=== PATIENT | male | born 1975 | race Two or more races ===

== ENCOUNTER 2020-06-22 18:24 | Observation (INO) | payer OTHER ==
[~2020-06-22] VITALS: Ht 170.2 cm; Wt 125.1 kg
[2020-06-22] MEDS ORDERED: IV NORMAL SALINE 1000ML BAG 1,000 ML IV ONE (18:30)
[2020-06-22 18:57] LABS: BASO % 1 % (0-3); EOS # 0.2 x10^3/uL (0.0-0.7); EOS % 2 % (0-3); HEMATOCRIT 37.3 % (39.0-53.0); LYMPH # 1.5 x10^3/uL (1.0-4.8); LYMPH % 19 % (24-48); MEAN CORPUSCULAR HEMOGLOBIN 29 pg (25-35); MEAN CORPUSCULAR HGB CONC 35 g/dL (31-37); MEAN CORPUSCULAR VOLUME 84 fL (79-100); MONO # 0.7 x10^3/uL (0.0-1.1); MONO % 9 % (0-9); NEUT # 5.6 x10^3/uL (1.8-7.7); NEUT % 70 % (31-73); PLATELET COUNT 249 x10^3/uL (140-400); RED BLOOD COUNT 4.43 x10^6/uL (4.30-5.70); RED CELL DISTRIBUTION WIDTH 13.7 % (11.5-14.5)
[2020-06-22] MEDS ORDERED: ASPIRIN 325 MG TABLET PO ONE (19:00)
[2020-06-22] MEDS ORDERED: DEXAMETHASONE SOD PHOS 20 MG/5 ML VIAL. IVP ONE (19:00)
--- NOTE | 2020-06-22 19:04 | PHYS DOC ---
Past Medical History Past Medical History: CAD, CHF, High Cholesterol, Hypertension, IA Additional Past Surgical Histo: "Cardiac cath" Smoking Status: Never Smoker Alcohol Use: Sober Drug Use: None General Adult EDM: Chief Complaint: CHEST PAIN HPI: HPI: Patient is a 44 year old with significant cardiac history presents from [facility] via EMS with report of chest pain and associated sweatiness. Reports chest pain began while "reading a book "at 1630. Patient reports pain is sharp and located to left chest with radiation to left neck. Patient reports history of prior IA and reports symptoms feel very similar to his prior episode. Patient denies any nausea, dizziness, or fever or chills. Reports has felt "a little" short of breath for last few days. Patient is COVID-19 positive on test that was performed yesterday at facility. Denies fever or chills. Denies shortness of air. Denies trauma. EMS reports giving 324 mg of aspirin, 3 rounds of nitroglycerin and 50 mcg of fentanyl IV in route prior to arrival to emergency department. Review of Systems: Review of Systems: Constitutional: Denies fever or chills Eyes: Denies redness or eye pain HENT: Denies nasal congestion or sore throat Respiratory: Denies cough or shortness of breath Cardiovascular: Reports chest pain; denies palpitations GI: Denies abdominal pain, nausea, or vomiting : Denies dysuria or hematuria Musculoskeletal: Denies back pain or joint pain Integument: Denies rash or skin lesions; reports diaphoresis Neurologic: Reports headache; denies focal weakness or sensory changes Complete systems were reviewed and found to be within normal limits, except as documented in this note. Heart Score: HEART Score for Chest Pain: HEART Score for Chest Pain Response (Comments) Value History Moderately Suspicious 1 ECG Normal 0 Age < 45 0 Risk Factors >3 Risk Factors or Hx CAD 2 Troponin < Normal Limit 0 Total 3 Risk Factors: Risk Factors: DM, Current or recent (<one month) smoker, HTN, HLP, family history of CAD, obesity. Risk Scores: Score 0 - 3: 2.5% MACE over next 6 weeks - Discharge Home Score 4 - 6: 20.3% MACE over next 6 weeks - Admit for Clinical Observation Score 7 - 10: 72.7% MACE over next 6 weeks - Early Invasive Strategies Current Medications: Current Medications Medications (Trade) Dose Ordered Sig/Elio Start Time Stop Time Status Last Admin Dose Admin Aspirin (Odin Aspirin) 325 mg 1X ONCE 06/22/20 19:00 06/22/20 19:01 Dexamethasone Sodium Phosphate (Decadron) 10 mg 1X ONCE 06/22/20 19:00 06/22/20 19:01 Sodium Chloride 1,000 ml @ 1,000 mls/hr 1X ONCE 06/22/20 18:30 06/22/20 19:29 Allergies: Allergies: Allergies Coded Allergies Type Severity Reaction Last Updated Verified Penicillins Allergy Unknown 06/22/20 Yes Physical Exam: PE: Constitutional: Well developed, well nourished, no acute distress, non-toxic appearance HENT: Normocephalic, atraumatic Eyes: Conjunctiva normal, no discharge Neck: Normal range of motion, no tenderness, supple Lungs & Thorax: No respiratory distress, equal chest rise and fall Abdomen: Soft, no tenderness Skin: Warm, dry, no erythema, no rash Back: No tenderness, no CVA tenderness Extremities: No tenderness, ROM intact, no edema Neurologic: Alert and oriented X 3, no focal deficits noted Psychologic: Affect normal, judgment normal Current Patient Data: Labs: Laboratory Tests Test 06/22/20 18:40 White Blood Count 8.0 x10^3/uL (4.0-11.0) Red Blood Count 4.43 x10^6/uL (4.30-5.70) Hemoglobin 13.0 g/dL (13.0-17.5) Hematocrit 37.3 % (39.0-53.0) L Mean Corpuscular Volume 84 fL (79-100) Mean Corpuscular Hemoglobin 29 pg (25-35) Mean Corpuscular Hemoglobin Concent 35 g/dL (31-37) Red Cell Distribution Width 13.7 % (11.5-14.5) Platelet Count 249 x10^3/uL (140-400) Neutrophils (%) (Auto) 70 % (31-73) Lymphocytes (%) (Auto) 19 % (24-48) L Monocytes (%) (Auto) 9 % (0-9) Eosinophils (%) (Auto) 2 % (0-3) Basophils (%) (Auto) 1 % (0-3) Neutrophils # (Auto) 5.6 x10^3/uL (1.8-7.7) Lymphocytes # (Auto) 1.5 x10^3/uL (1.0-4.8) Monocytes # (Auto) 0.7 x10^3/uL (0.0-1.1) Eosinophils # (Auto) 0.2 x10^3/uL (0.0-0.7) Basophils # (Auto) 0.0 x10^3/uL (0.0-0.2) Laboratory Tests 06/22/20 18:40 EKG: EKG: @1833 NSR at 79bpm, NO ST elevation, QRS 104ms, QT/QTc 348/400ms Radiology/Procedures: Radiology/Procedures: PROCEDURE: CHEST AP ONLY AP chest. HISTORY: Chest pain, Covid-19 positive AP view was taken of the chest. Heart is normal in size. There is no effusion. The patient's taken a poor inspiration. There are no definite infiltrates. IMPRESSION: 1. Poor inspiration. 2. No definite infiltrates. Electronically signed by: Matthew Rivera MD (06/22/2020 8:21 PM) [facility] Course & Med Decision Making: Course & Med Decision Making Pertinent Labs and Imaging studies reviewed. (See chart for details) Patient with significant cardiac history presents via EMS from [facility] with report of chest pain. Patient with known history of COVID-19 positive. Patient without any respiratory distress. Sats stable. EKG without acute process. Labs obtained and posted to chart. Initial troponin within normal limits. D-dimer negative. Chest x-ray stable. Patient reported some headache likely secondary to nitroglycerin. Patient requiring admission for further evaluation and treatment. Discussed with Dr. Parada (hospitalist) who is in agreement with admission. Cardiology consult placed. Will make NPO at MI. Discussed findings and plan with patient, who acknowledges understanding and agreement. COVID-19 CRITERIA: The patient was evaluated during the global COVID-19 pandemic, and that diagnosis was suspected/considered upon their initial presentation. Their evaluation, treatment and testing was consistent with current guidelines for patients who present with complaints or symptoms that may be related to COVID-19. Dragon Disclaimer: Dragon Disclaimer: This electronic medical record was generated, in whole or in part, using a voice recognition dictation system. Departure Departure Impression: Primary Impression: Chest pain Qualified Codes: R07.9 - Chest pain, unspecified Additional Impression: COVID-19 Disposition: 09 ADMITTED INPT THIS HOSP (observation) Admitting Physician: JERRY Adam) Condition: STABLE Referrals: UNKNOWN PCP NAME (PCP) COVID-19 Assessment: COVID-19 Patient Risks: Age 65 or older: No Sign of co-morbidity: Yes Exp to person + for COVID: Yes Exp to PUI: No Travel from affected area: No Lower respiratory symptoms: No Fever: No Other: Yes PPE Use: Full PPE with N95 mask or PAPR: Yes NIXON MAIER DO Jun 22, 2020 19:04
[2020-06-22 19:10] LABS: CALCIUM 9.3 mg/dL (8.5-10.1); GFR 81.9
[2020-06-22 19:11] LABS: PROTHROMBIN TIME PATIENT 13.7 SEC (11.7-14.0)
[2020-06-22 19:15] LABS: D-DIMER 0.28 ug/mlFEU (0.00-0.50)
[2020-06-22 19:16] LABS: ALBUMIN 3.7 g/dL (3.4-5.0); MAGNESIUM 2.1 mg/dL (1.8-2.4); TOTAL BILIRUBIN 0.6 mg/dL (0.2-1.0); TOTAL PROTEIN 7.5 g/dL (6.4-8.2)
[2020-06-22 19:59] LABS: BILIRUBIN,URINE NEGATIVE (NEG); CLARITY,URINE CLEAR; COLOR,URINE YELLOW; NITRITE,URINE NEGATIVE (NEG); PH,URINE 6.5 (<5.0-8.0); PROTEIN,URINE NEGATIVE (NEG-TRACE)
[2020-06-22 20:11] LABS: BACTERIA,URINE 0 /HPF (0-FEW); RBC,URINE 0 /HPF (0-2); WBC,URINE 0 /HPF (0-4)
[2020-06-22] MEDS ORDERED: ONDANSETRON PF 4 MG/2 ML VIAL. IV PRN ×2 (20:15→23:00)
[2020-06-22] MEDS ORDERED: fentaNYL PF VIAL 100 MCG/2 ML VIAL IV PRN (20:15)
--- NOTE | 2020-06-22 20:24 | RAD ---
AP chest. HISTORY: Chest pain, Covid-19 positive AP view was taken of the chest. Heart is normal in size. There is no effusion. The patient's taken a poor inspiration. There are no definite infiltrates. IMPRESSION: 1. Poor inspiration. 2. No definite infiltrates. Electronically signed by: Matthew Rivera MD (06/22/2020 8:21 PM) [facility]
[2020-06-22] MEDS ORDERED: ACETAMINOPHEN 500 MG TABLET PO ONE (20:45)
[2020-06-22 22:46] VITALS: BP 131/87
[2020-06-22] MEDS ORDERED: DOCUSATE SODIUM 100 MG CAPSULE. PO PRN (23:00)
[2020-06-22] MEDS ORDERED: guaiFENesin DM 200MG/20MG 10 ML SYRUP PO PRN (23:00)
[2020-06-22] MEDS ORDERED: ENOXAPARIN 40 MG/0.4 ML SYRINGE. SQ SCH (23:00)
[2020-06-22] MEDS ORDERED: ACETAMINOPHEN 325 MG TABLET. PO PRN (23:00)
[2020-06-22] MEDS ORDERED: NITROGLYCERIN SUBLINGUAL 0.4 MG BOTTLE OF 25. SL PRN (23:00)
[2020-06-22] MEDS ORDERED: cloNIDine HCL 0.1 MG TABLET PO PRN (23:00)
[2020-06-22] MEDS ORDERED: OMEP40CA45 PO (23:10)
[2020-06-22] MEDS ORDERED: NAPR-683 PO (23:10)
[2020-06-22] MEDS ORDERED: LISI-130 PO (23:10)
[2020-06-22] MEDS ORDERED: AMLO-187 PO (23:10)
[2020-06-22] MEDS ORDERED: ACET500T68 PO (23:10)
[2020-06-22] MEDS ORDERED: METO50TA4 PO (23:10)
[2020-06-22] MEDS ORDERED: SPIR25TA5 PO (23:10)
[2020-06-22] MEDS ORDERED: PRAV40TA2 PO (23:10)
[2020-06-22] MEDS ORDERED: NITR0.4T22 SL (23:10)
[2020-06-23] MEDS: ZINC SULFATE 220 MG CAPSULE. PO SCH ×2 (00:16→13:59)
[2020-06-23 02:57] VITALS: BP 116/76
[2020-06-23 05:52] LABS: ALBUMIN 3.6 g/dL (3.4-5.0); ALBUMIN/GLOBULIN RATIO 0.8 (1.0-1.7); CALCIUM 9.1 mg/dL (8.5-10.1); GFR 81.9; POTASSIUM 4.5 mmol/L (3.5-5.1); TOTAL BILIRUBIN 0.6 mg/dL (0.2-1.0); TOTAL PROTEIN 7.9 g/dL (6.4-8.2)
[2020-06-23 07:00] VITALS: BP 103/82
--- NOTE | 2020-06-23 07:55 | PDOC1 ---
History and Physical Date of Admission Date of Admission DATE: 06/22/20 TIME: 2004 Identification/Chief Complaint Chief Complaint Chest pain Source Source: Chart review, Patient History of Present Illness History of Present Illness Mr Pool is a 44yo M [facility] w/ PMHx CHF, High Cholesterol, Hypertension who presents via EMS with report of chest pain and associated diaphoresis. Chest pain began at rest while reading a book at 1630 on 06/22/2020. Patient reports pain is sharp and located to left chest with radiation to left neck. Patient reports history of prior NH and reports symptoms feel very similar to his prior episode. Patient denies any nausea, dizziness, or fever or chills. Reports has felt "a little" short of breath for last few days. Patient is COVID-19 positive on test performed 06/21/2020 at skilled nursing. Denies fever or chills. Denies shortness of air. Denies trauma. 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 EKG appears NSR at 79bpm, NO ST elevation, QRS 104ms, QT/QTc 348/400ms D-dimer negative. Chest radiograph difficult read due to poor inspiration. Troponin x3 -. WBC 8, Hb 13, platelets 249 On further history today he notes that he has had coronary angiography and [facility] previously in 2006 with no interventions. He was seen in January 2020 at [facility] for hospitalization after syncope and tells me he was diagnosed with congestive heart failure at that time. He does note a strong family history of coronary artery disease with a brother who had CABG x4 in his 40s mother and grandmother with coronary artery disease as well. He no longer has pain in his left neck tells me he has occasional pains in his epigastric area right now. Past Medical History Cardiovascular: HTN, Hyperlipidemia Past Surgical History Past Surgical History: No pertinent history Family History Family History: Coronary Artery Disease, High Cholestrol, Hypertension Social History Smoke: No ALCOHOL: none Drugs: Marijuana Current Problem List Problem List Problems Medical Problems: (1) Chest pain Status: Acute (2) COVID-19 Status: Acute Current Medications Current Medications Current Medications Aspirin (Odin Aspirin) 325 mg 1X ONCE PO ; Start 06/22/20 at 19:00; Stop 06/22/20 at 19:01; Status DC Sodium Chloride 1,000 ml @ 1,000 mls/hr 1X ONCE IV Last administered on 06/22/20at 18:30; Start 06/22/20 at 18:30; Stop 06/22/20 at 19:29; Status DC Dexamethasone Sodium Phosphate (Decadron) 10 mg 1X ONCE IVP Last administered on 06/22/20at 19:00; Start 06/22/20 at 19:00; Stop 06/22/20 at 19:01; Status DC Acetaminophen (Tylenol) 500 mg 1X ONCE PO Last administered on 06/22/20at 20: 37; Start 06/22/20 at 20:45; Stop 06/22/20 at 20:46; Status DC Ondansetron HCl (Zofran) 4 mg PRN Q8HRS PRN IV NAUSEA/VOMITING; Start 06/22/20 at 20:15; Stop 06/22/20 at 22:56; Status DC Fentanyl Citrate (Fentanyl 2ml Vial) 50 mcg PRN Q2HR PRN IV PAIN; Start 06/22/20 at 20:15 Ondansetron HCl (Zofran) 4 mg PRN Q4HRS PRN IV NAUSEA/VOMITING; Start 06/22/20 at 23:00 Acetaminophen (Tylenol) 650 mg PRN Q4HRS PRN PO TEMP OVER 100.4F OR MILD PAIN; Start 06/22/20 at 23:00 Clonidine HCl (Catapres) 0.1 mg PRN Q6HRS PRN PO SBP>160 OR DBP>90; Start 06/22/20 at 23:00 Docusate Sodium (Colace) 100 mg PRN BID PRN PO HARD STOOLS; Start 06/22/20 at 23:00 Enoxaparin Sodium (Lovenox 40mg Syringe) 40 mg Q24H SQ Last administered on 06/23/20at 00:17; Start 06/22/20 at 23:00 Nitroglycerin (Nitrostat) 0.4 mg PRN Q5MIN PRN SL CHEST PAIN; Start 06/22/20 at 23:00 Guaifenesin (Robitussin Dm) 10 ml PRN Q6HRS PRN PO COUGH; Start 06/22/20 at 23:00 Zinc Sulfate (Orazinc) 220 mg DAILY PO Last administered on 06/23/20at 00:16; Start 06/22/20 at 23:00 Active Scripts Active Reported Acetaminophen 500 Mg Tablet 500 Mg PO BID NITROGLYCERIN SubLingual (Nitroglycerin) 0.4 Mg Tab.subl 1 Tab SL UD 1st sign of attack; may repeat every 5 mins; if pain persists after 3 in 15 min, medical attention is recommended Naprosyn (Naproxen) 500 Mg Tablet 1 Tab PO BID 30 Days Omeprazole 40 Mg Capsule.dr 1 Cap PO DAILY PRN Pravastatin Sodium 40 Mg Tablet 1 Tab PO QHS Spironolactone 25 Mg Tablet 1 Tab PO BID Toprol XL (Metoprolol Succinate) 50 Mg Tab.er.24h 50 Mg PO DAILY Amlodipine Besylate 10 Mg Tablet 10 Mg PO DAILY Lisinopril 40 Mg Tablet 1 Tab PO DAILY Allergies Allergies: Coded Allergies: Penicillins (Verified Allergy, Unknown, 06/22/20) ROS General: YES: Fatigue, Malaise; No: Chills, Night Sweats, Appetite, Other PSYCHOLOGICAL ROS: No: Anxiety, Behavioral Disorder, Concentration difficultie, Decreased libido, Depression, Disorientation, Hallucinations, Hostility, Irritablity, Memory difficulties, Mood Swings, Obsessive thoughts, Physical abuse, Sexual abuse, Sleep disturbances, Suicidal ideation, Other Eyes: No Blurry vision, No Decreased vision, No Double vision, No Dry eyes, No Excessive tearing, No Eye Pain, No Itchy Eyes, No Loss of vision, No Photophobia, No Scotomata, No Uses contacts, No Uses glasses, No Other HEENT: No: Heacaches, Visual Changes, Hearing change, Nasal congestion, Nasal discharge, Oral lesions, Sinus pain, Sore Throat, Epistaxis, Sneezing, Snoring, Tinnitus, Vertigo, Vocal changes, Other ALLERGY AND IMMUNOLOGY: No: Hives, Insect Bite Sensitivity, Itchy/Watery Eyes, Nasal Congestion, Post Nasal Drip, Seasonal Allergies, Other Hematological and Lymphatic: No: Bleeding Problems, Blood Clots, Blood Transfusions, Brusing, Night Sweats, Pallor, Swollen Lymph Nodes, Other ENDOCRINE: No: Breast Changes, Galactorrhea, Hair Pattern Changes, Hot Flashes, Malaise/lethargy, Mood Swings, Palpitations, Polydipsia/polyuria, Skin Changes, Temperature Intolerance, Unexpected Weight Changes, Other Breast: No New/Changing Breast Lumps, No Nipple changes, No Nipple discharge, No Other Respiratory: No: Cough, Hemoptysis, Orthopnea, Pleuritic Pain, Shortness of breath, SOB with excertion, Sputum Changes, Stridor, Tachypnea, Wheezing, Other Cardiovascular: yes Chest Pain; No Palpitations, No Orthopnea, No Paroxysmal Noc. Dyspnea, No Edema, No Lt Headedness, No Other Gastrointestinal: No Nausea, No Vomiting, No Abdominal Pain, No Diarrhea, No Constipation, No Melena, No Hematochezia, No Other Genitourinary: No Dysuria, No Frequency, No Incontinence, No Hematuria, No Retention, No Discharge, No Urgency, No Pain, No Flank Pain, No Other, No , No , No , No , No , No , No Musculoskeletal: No Gait Disturbance, No Joint Pain, No Joint Stiffness, No Joint Swelling, No Muscle Pain, No Muscular Weakness, No Pain In:, No Swelling In:, No Other Neurological: No Behavorial Changes, No Bowel/Bladder ControlChng, No Confusion, No Dizziness, No Gait Disturbance, No Headaches, No Impaired Coord/balance, No Memory Loss, No Numbness/Tingling, No Seizures, No Speech Problems, No Tremors, No Visual Changes, No Weakness, No Other Skin: No Dry Skin, No Eczema, No Hair Changes, No Lumps, No Mole Changes, No Mottling, No Nail Changes, No Pruritus, No Rash, No Skin Lesion Changes, No Other, No Acne Physical Exam General: Alert, Oriented X3, Cooperative, No acute distress HEENT: Atraumatic, PERRLA, EOMI, Mucous membr. moist/pink Lungs: Clear to auscultation, Normal air movement Heart: S1S2, RRR, no thrills, no rubs, no gallops, no murmurs Abdomen: Normal bowel sounds, Soft, No tenderness, No hepatosplenomegaly, No masses Rectal Exam: not examined Extremities: No clubbing, No cyanosis, No edema, Normal pulses, No tenderness/swelling Skin: No rashes, No breakdown, No significant lesion Neuro: Normal gait, Normal speech, Strength at 5/5 X4 ext, Normal tone, Sensation intact, Cranial nerves 3-12 NL, Reflexes 2+ Psych/Mental Status: Mental status NL, Mood NL Vitals Vitals Vital Signs Date Time Temp Pulse Resp B/P (MAP) Pulse Ox O2 Delivery O2 Flow Rate FiO2 06/23/20 02:57 97.6 84 18 116/76 (89) 96 Room Air 97.6 Labs Labs Laboratory Tests Test 06/22/20 18:40 06/22/20 19:45 06/23/20 01:00 06/23/20 04:45 White Blood Count 8.0 x10^3/uL (4.0-11.0) Red Blood Count 4.43 x10^6/uL (4.30-5.70) Hemoglobin 13.0 g/dL (13.0-17.5) Hematocrit 37.3 % (39.0-53.0) Mean Corpuscular Volume 84 fL (79-100) Mean Corpuscular Hemoglobin 29 pg (25-35) Mean Corpuscular Hemoglobin Concent 35 g/dL (31-37) Red Cell Distribution Width 13.7 % (11.5-14.5) Platelet Count 249 x10^3/uL (140-400) Neutrophils (%) (Auto) 70 % (31-73) Lymphocytes (%) (Auto) 19 % (24-48) Monocytes (%) (Auto) 9 % (0-9) Eosinophils (%) (Auto) 2 % (0-3) Basophils (%) (Auto) 1 % (0-3) Neutrophils # (Auto) 5.6 x10^3/uL (1.8-7.7) Lymphocytes # (Auto) 1.5 x10^3/uL (1.0-4.8) Monocytes # (Auto) 0.7 x10^3/uL (0.0-1.1) Eosinophils # (Auto) 0.2 x10^3/uL (0.0-0.7) Basophils # (Auto) 0.0 x10^3/uL (0.0-0.2) Prothrombin Time 13.7 SEC (11.7-14.0) Prothromb Time International Ratio 1.1 (0.8-1.1) Activated Partial Thromboplast Time 29 SEC (24-38) D-Dimer (Floridalma) 0.28 ug/mlFEU (0.00-0.50) < 0.27 ug/mlFEU Sodium Level 137 mmol/L (136-145) 137 mmol/L (136-145) Potassium Level 4.0 mmol/L (3.5-5.1) 4.5 mmol/L (3.5-5.1) Chloride Level 103 mmol/L (98-107) 103 mmol/L (98-107) Carbon Dioxide Level 28 mmol/L (21-32) 25 mmol/L (21-32) Anion Gap 6 (6-14) 9 (6-14) Blood Urea Nitrogen 19 mg/dL (8-26) 18 mg/dL (8-26) Creatinine 1.0 mg/dL (0.7-1.3) 1.0 mg/dL (0.7-1.3) Estimated GFR (Cockcroft-Gault) 81.9 81.9 BUN/Creatinine Ratio 19 (6-20) 18 (6-20) Glucose Level 105 mg/dL (70-99) 152 mg/dL (70-99) Calcium Level 9.3 mg/dL (8.5-10.1) 9.1 mg/dL (8.5-10.1) Magnesium Level 2.1 mg/dL (1.8-2.4) Total Bilirubin 0.6 mg/dL (0.2-1.0) 0.6 mg/dL (0.2-1.0) Aspartate Amino Transf (AST/SGOT) 15 U/L (15-37) 14 U/L (15-37) Alanine Aminotransferase (ALT/SGPT) 23 U/L (16-63) 24 U/L (16-63) Alkaline Phosphatase 73 U/L (46-116) 76 U/L (46-116) Troponin I Quantitative < 0.017 ng/mL (0.000-0.055) < 0.017 ng/mL (0.000-0.055) < 0.017 ng/mL (0.000-0.055) IW-Qjz-W-Type Natriuretic Peptide 71 pg/mL (0-124) Total Protein 7.5 g/dL (6.4-8.2) 7.9 g/dL (6.4-8.2) Albumin 3.7 g/dL (3.4-5.0) 3.6 g/dL (3.4-5.0) Albumin/Globulin Ratio 1.0 (1.0-1.7) 0.8 (1.0-1.7) Lipase 75 U/L (73-393) Urine Collection Type Unknown Urine Color Yellow Urine Clarity Clear Urine pH 6.5 (<5.0-8.0) Urine Specific Bon[place]arte 1.010 (1.000-1.030) Urine Protein Negative mg/dL (NEG-TRACE) Urine Glucose (UA) Negative mg/dL (NEG) Urine Ketones (Stick) Negative mg/dL (NEG) Urine Blood Negative (NEG) Urine Nitrite Negative (NEG) Urine Bilirubin Negative (NEG) Urine Urobilinogen Dipstick 1.0 mg/dL (0.2 mg/dL) Urine Leukocyte Esterase Negative (NEG) Urine RBC 0 /HPF (0-2) Urine WBC 0 /HPF (0-4) Urine Squamous Epithelial Cells Occ /LPF Urine Bacteria 0 /HPF (0-FEW) Urine Mucus Slight /LPF Laboratory Tests Test 06/22/20 18:40 06/22/20 19:45 06/23/20 01:00 06/23/20 04:45 White Blood Count 8.0 x10^3/uL (4.0-11.0) Red Blood Count 4.43 x10^6/uL (4.30-5.70) Hemoglobin 13.0 g/dL (13.0-17.5) Hematocrit 37.3 % (39.0-53.0) Mean Corpuscular Volume 84 fL (79-100) Mean Corpuscular Hemoglobin 29 pg (25-35) Mean Corpuscular Hemoglobin Concent 35 g/dL (31-37) Red Cell Distribution Width 13.7 % (11.5-14.5) Platelet Count 249 x10^3/uL (140-400) Neutrophils (%) (Auto) 70 % (31-73) Lymphocytes (%) (Auto) 19 % (24-48) Monocytes (%) (Auto) 9 % (0-9) Eosinophils (%) (Auto) 2 % (0-3) Basophils (%) (Auto) 1 % (0-3) Neutrophils # (Auto) 5.6 x10^3/uL (1.8-7.7) Lymphocytes # (Auto) 1.5 x10^3/uL (1.0-4.8) Monocytes # (Auto) 0.7 x10^3/uL (0.0-1.1) Eosinophils # (Auto) 0.2 x10^3/uL (0.0-0.7) Basophils # (Auto) 0.0 x10^3/uL (0.0-0.2) Prothrombin Time 13.7 SEC (11.7-14.0) Prothromb Time International Ratio 1.1 (0.8-1.1) Activated Partial Thromboplast Time 29 SEC (24-38) D-Dimer (Floridalma) 0.28 ug/mlFEU (0.00-0.50) < 0.27 ug/mlFEU Sodium Level 137 mmol/L (136-145) 137 mmol/L (136-145) Potassium Level 4.0 mmol/L (3.5-5.1) 4.5 mmol/L (3.5-5.1) Chloride Level 103 mmol/L (98-107) 103 mmol/L (98-107) Carbon Dioxide Level 28 mmol/L (21-32) 25 mmol/L (21-32) Anion Gap 6 (6-14) 9 (6-14) Blood Urea Nitrogen 19 mg/dL (8-26) 18 mg/dL (8-26) Creatinine 1.0 mg/dL (0.7-1.3) 1.0 mg/dL (0.7-1.3) Estimated GFR (Cockcroft-Gault) 81.9 81.9 BUN/Creatinine Ratio 19 (6-20) 18 (6-20) Glucose Level 105 mg/dL (70-99) 152 mg/dL (70-99) Calcium Level 9.3 mg/dL (8.5-10.1) 9.1 mg/dL (8.5-10.1) Magnesium Level 2.1 mg/dL (1.8-2.4) Total Bilirubin 0.6 mg/dL (0.2-1.0) 0.6 mg/dL (0.2-1.0) Aspartate Amino Transf (AST/SGOT) 15 U/L (15-37) 14 U/L (15-37) Alanine Aminotransferase (ALT/SGPT) 23 U/L (16-63) 24 U/L (16-63) Alkaline Phosphatase 73 U/L (46-116) 76 U/L (46-116) Troponin I Quantitative < 0.017 ng/mL (0.000-0.055) < 0.017 ng/mL (0.000-0.055) < 0.017 ng/mL (0.000-0.055) KC-Sdg-I-Type Natriuretic Peptide 71 pg/mL (0-124) Total Protein 7.5 g/dL (6.4-8.2) 7.9 g/dL (6.4-8.2) Albumin 3.7 g/dL (3.4-5.0) 3.6 g/dL (3.4-5.0) Albumin/Globulin Ratio 1.0 (1.0-1.7) 0.8 (1.0-1.7) Lipase 75 U/L (73-393) Urine Collection Type Unknown Urine Color Yellow Urine Clarity Clear Urine pH 6.5 (<5.0-8.0) Urine Specific [place]arte 1.010 (1.000-1.030) Urine Protein Negative mg/dL (NEG-TRACE) Urine Glucose (UA) Negative mg/dL (NEG) Urine Ketones (Stick) Negative mg/dL (NEG) Urine Blood Negative (NEG) Urine Nitrite Negative (NEG) Urine Bilirubin Negative (NEG) Urine Urobilinogen Dipstick 1.0 mg/dL (0.2 mg/dL) Urine Leukocyte Esterase Negative (NEG) Urine RBC 0 /HPF (0-2) Urine WBC 0 /HPF (0-4) Urine Squamous Epithelial Cells Occ /LPF Urine Bacteria 0 /HPF (0-FEW) Urine Mucus Slight /LPF Images Images Chest radiograph: AP view was taken of the chest. Heart is normal in size. There is no effusion. The patient's taken a poor inspiration. There are no definite infiltrates. IMPRESSION: 1. Poor inspiration. 2. No definite infiltrates. VTE Prophylaxis Ordered VTE Prophylaxis Devices: Yes VTE Pharmacological Prophylaxi: Yes Assessment/Plan Assessment/Plan A/P: COVID-19 - not requiring any oxygen no significant GI symptoms. Chest pain - likely GERD. Per his report has nonobstructive CAD on cardiac cath and has been seen at [facility] in [facility]. Diastolic CHF - BNP 71, not symptomatic High Cholesterol - cont statin Hypertension - cont BP meds FEN - Cardiac diet PPX - Lovenox FULL CODE DIspo - ruled out for acute NH, can return to facility COVID-19 CRITERIA: The patient was evaluated during the global COVID-19 woody demic, and that diagnosis was suspected/considered upon their initial presentation. Their evaluation, treatment and testing was consistent with current guidelines for patients who present with complaints or symptoms that may be related to COVID-19. Justifications for Admission Other Justification BEVERLY MARIE MD Jun 23, 2020 07:55
[2020-06-23] MEDS ORDERED: NITROGLYCERIN SUBLINGUAL 0.4 MG BOTTLE OF 25. SL PRN (08:00)
[2020-06-23] MEDS ORDERED: SPIRONOLACTONE 25 MG TABLET PO SCH (09:00)
[2020-06-23] MEDS ORDERED: PANTOPRAZOLE 40 MG TABLET.DR. PO SCH (09:00)
[2020-06-23] MEDS ORDERED: amLODIPine BESYLATE 10 MG TABLET PO SCH (09:00)
[2020-06-23] MEDS ORDERED: METOPROLOL SUCC 24HR ER 50 MG TAB.ER.24H. PO SCH (09:00)
[2020-06-23] MEDS ORDERED: LISINOPRIL 20 MG TABLET PO SCH (09:00)
[2020-06-23 11:00] VITALS: BP 101/83
[2020-06-23] MEDS ORDERED: PANT40TA77 PO (13:52)
--- NOTE | 2020-06-23 13:57 | PDOC3 ---
Discharge Summary Visit Information Date of Admission: Jun 22, 2020 Date of Discharge: Jun 23, 2020 Admitting Diagnosis: Chest pain Final Diagnosis Problems Medical Problems: (1) Chest pain Status: Acute (2) COVID-19 Status: Acute Brief Hospital Course Allergies Allergies Coded Allergies Type Severity Reaction Last Updated Verified Penicillins Allergy Unknown 06/22/20 Yes Vital Signs Vital Signs Date Time Temp Pulse Resp B/P (MAP) Pulse Ox O2 Delivery O2 Flow Rate FiO2 06/23/20 08:00 Room Air 06/23/20 07:00 97.8 88 16 103/82 (89) 95 97.8 Lab Results Laboratory Tests Test 06/22/20 18:40 06/22/20 19:45 06/23/20 01:00 06/23/20 04:45 White Blood Count 8.0 x10^3/uL (4.0-11.0) Red Blood Count 4.43 x10^6/uL (4.30-5.70) Hemoglobin 13.0 g/dL (13.0-17.5) Hematocrit 37.3 % (39.0-53.0) Mean Corpuscular Volume 84 fL (79-100) Mean Corpuscular Hemoglobin 29 pg (25-35) Mean Corpuscular Hemoglobin Concent 35 g/dL (31-37) Red Cell Distribution Width 13.7 % (11.5-14.5) Platelet Count 249 x10^3/uL (140-400) Neutrophils (%) (Auto) 70 % (31-73) Lymphocytes (%) (Auto) 19 % (24-48) Monocytes (%) (Auto) 9 % (0-9) Eosinophils (%) (Auto) 2 % (0-3) Basophils (%) (Auto) 1 % (0-3) Neutrophils # (Auto) 5.6 x10^3/uL (1.8-7.7) Lymphocytes # (Auto) 1.5 x10^3/uL (1.0-4.8) Monocytes # (Auto) 0.7 x10^3/uL (0.0-1.1) Eosinophils # (Auto) 0.2 x10^3/uL (0.0-0.7) Basophils # (Auto) 0.0 x10^3/uL (0.0-0.2) Prothrombin Time 13.7 SEC (11.7-14.0) Prothromb Time International Ratio 1.1 (0.8-1.1) Activated Partial Thromboplast Time 29 SEC (24-38) D-Dimer (Floridalma) 0.28 ug/mlFEU (0.00-0.50) < 0.27 ug/mlFEU Sodium Level 137 mmol/L (136-145) 137 mmol/L (136-145) Potassium Level 4.0 mmol/L (3.5-5.1) 4.5 mmol/L (3.5-5.1) Chloride Level 103 mmol/L (98-107) 103 mmol/L (98-107) Carbon Dioxide Level 28 mmol/L (21-32) 25 mmol/L (21-32) Anion Gap 6 (6-14) 9 (6-14) Blood Urea Nitrogen 19 mg/dL (8-26) 18 mg/dL (8-26) Creatinine 1.0 mg/dL (0.7-1.3) 1.0 mg/dL (0.7-1.3) Estimated GFR (Cockcroft-Gault) 81.9 81.9 BUN/Creatinine Ratio 19 (6-20) 18 (6-20) Glucose Level 105 mg/dL (70-99) 152 mg/dL (70-99) Calcium Level 9.3 mg/dL (8.5-10.1) 9.1 mg/dL (8.5-10.1) Magnesium Level 2.1 mg/dL (1.8-2.4) Total Bilirubin 0.6 mg/dL (0.2-1.0) 0.6 mg/dL (0.2-1.0) Aspartate Amino Transf (AST/SGOT) 15 U/L (15-37) 14 U/L (15-37) Alanine Aminotransferase (ALT/SGPT) 23 U/L (16-63) 24 U/L (16-63) Alkaline Phosphatase 73 U/L (46-116) 76 U/L (46-116) Troponin I Quantitative < 0.017 ng/mL (0.000-0.055) < 0.017 ng/mL (0.000-0.055) < 0.017 ng/mL (0.000-0.055) PS-Vrh-W-Type Natriuretic Peptide 71 pg/mL (0-124) Total Protein 7.5 g/dL (6.4-8.2) 7.9 g/dL (6.4-8.2) Albumin 3.7 g/dL (3.4-5.0) 3.6 g/dL (3.4-5.0) Albumin/Globulin Ratio 1.0 (1.0-1.7) 0.8 (1.0-1.7) Lipase 75 U/L (73-393) Urine Collection Type Unknown Urine Color Yellow Urine Clarity Clear Urine pH 6.5 (<5.0-8.0) Urine Specific [place] 1.010 (1.000-1.030) Urine Protein Negative mg/dL (NEG-TRACE) Urine Glucose (UA) Negative mg/dL (NEG) Urine Ketones (Stick) Negative mg/dL (NEG) Urine Blood Negative (NEG) Urine Nitrite Negative (NEG) Urine Bilirubin Negative (NEG) Urine Urobilinogen Dipstick 1.0 mg/dL (0.2 mg/dL) Urine Leukocyte Esterase Negative (NEG) Urine RBC 0 /HPF (0-2) Urine WBC 0 /HPF (0-4) Urine Squamous Epithelial Cells Occ /LPF Urine Bacteria 0 /HPF (0-FEW) Urine Mucus Slight /LPF Laboratory Tests Test 06/22/20 18:40 06/22/20 19:45 06/23/20 01:00 06/23/20 04:45 White Blood Count 8.0 x10^3/uL (4.0-11.0) Red Blood Count 4.43 x10^6/uL (4.30-5.70) Hemoglobin 13.0 g/dL (13.0-17.5) Hematocrit 37.3 % (39.0-53.0) Mean Corpuscular Volume 84 fL (79-100) Mean Corpuscular Hemoglobin 29 pg (25-35) Mean Corpuscular Hemoglobin Concent 35 g/dL (31-37) Red Cell Distribution Width 13.7 % (11.5-14.5) Platelet Count 249 x10^3/uL (140-400) Neutrophils (%) (Auto) 70 % (31-73) Lymphocytes (%) (Auto) 19 % (24-48) Monocytes (%) (Auto) 9 % (0-9) Eosinophils (%) (Auto) 2 % (0-3) Basophils (%) (Auto) 1 % (0-3) Neutrophils # (Auto) 5.6 x10^3/uL (1.8-7.7) Lymphocytes # (Auto) 1.5 x10^3/uL (1.0-4.8) Monocytes # (Auto) 0.7 x10^3/uL (0.0-1.1) Eosinophils # (Auto) 0.2 x10^3/uL (0.0-0.7) Basophils # (Auto) 0.0 x10^3/uL (0.0-0.2) Prothrombin Time 13.7 SEC (11.7-14.0) Prothromb Time International Ratio 1.1 (0.8-1.1) Activated Partial Thromboplast Time 29 SEC (24-38) D-Dimer (Floridalma) 0.28 ug/mlFEU (0.00-0.50) < 0.27 ug/mlFEU Sodium Level 137 mmol/L (136-145) 137 mmol/L (136-145) Potassium Level 4.0 mmol/L (3.5-5.1) 4.5 mmol/L (3.5-5.1) Chloride Level 103 mmol/L (98-107) 103 mmol/L (98-107) Carbon Dioxide Level 28 mmol/L (21-32) 25 mmol/L (21-32) Anion Gap 6 (6-14) 9 (6-14) Blood Urea Nitrogen 19 mg/dL (8-26) 18 mg/dL (8-26) Creatinine 1.0 mg/dL (0.7-1.3) 1.0 mg/dL (0.7-1.3) Estimated GFR (Cockcroft-Gault) 81.9 81.9 BUN/Creatinine Ratio 19 (6-20) 18 (6-20) Glucose Level 105 mg/dL (70-99) 152 mg/dL (70-99) Calcium Level 9.3 mg/dL (8.5-10.1) 9.1 mg/dL (8.5-10.1) Magnesium Level 2.1 mg/dL (1.8-2.4) Total Bilirubin 0.6 mg/dL (0.2-1.0) 0.6 mg/dL (0.2-1.0) Aspartate Amino Transf (AST/SGOT) 15 U/L (15-37) 14 U/L (15-37) Alanine Aminotransferase (ALT/SGPT) 23 U/L (16-63) 24 U/L (16-63) Alkaline Phosphatase 73 U/L (46-116) 76 U/L (46-116) Troponin I Quantitative < 0.017 ng/mL (0.000-0.055) < 0.017 ng/mL (0.000-0.055) < 0.017 ng/mL (0.000-0.055) GG-Rzt-R-Type Natriuretic Peptide 71 pg/mL (0-124) Total Protein 7.5 g/dL (6.4-8.2) 7.9 g/dL (6.4-8.2) Albumin 3.7 g/dL (3.4-5.0) 3.6 g/dL (3.4-5.0) Albumin/Globulin Ratio 1.0 (1.0-1.7) 0.8 (1.0-1.7) Lipase 75 U/L (73-393) Urine Collection Type Unknown Urine Color Yellow Urine Clarity Clear Urine pH 6.5 (<5.0-8.0) Urine Specific [place] 1.010 (1.000-1.030) Urine Protein Negative mg/dL (NEG-TRACE) Urine Glucose (UA) Negative mg/dL (NEG) Urine Ketones (Stick) Negative mg/dL (NEG) Urine Blood Negative (NEG) Urine Nitrite Negative (NEG) Urine Bilirubin Negative (NEG) Urine Urobilinogen Dipstick 1.0 mg/dL (0.2 mg/dL) Urine Leukocyte Esterase Negative (NEG) Urine RBC 0 /HPF (0-2) Urine WBC 0 /HPF (0-4) Urine Squamous Epithelial Cells Occ /LPF Urine Bacteria 0 /HPF (0-FEW) Urine Mucus Slight /LPF Brief Hospital Course Mr Pool is a 44yo M inmate [facility] w/ PMHx CHF, High Cholesterol, Hypertension who presents via EMS with report of chest pain and associated diaphoresis. Chest pain began at rest while reading a book at 1630 on 06/22/2020. Patient reports pain is sharp and located to left chest with radiation to left neck. Patient reports history of prior FL and reports symptoms feel very similar to his prior episode. Patient denies any nausea, dizziness, or fever or chills. Reports has felt "a little" short of breath for last few days. Patient is COVID-19 positive on test performed 06/21/2020 at retirement. Denies fever or chills. Denies shortness of air. Denies trauma. 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 EKG appears NSR at 79bpm, NO ST elevation, QRS 104ms, QT/QTc 348/400ms D-dimer negative. Chest radiograph difficult read due to poor inspiration. Troponin x3 -. WBC 8, Hb 13, platelets 249 On further history today he notes that he has had coronary angiography and [facility] previously in 2006 with no interventions. He was seen in January 2020 at [facility] for hospitalization after syncope and tells me he was diagnosed with congestive heart failure at that time. He does note a strong family history of coronary artery disease with a brother who had CABG x4 in his 40s mother and grandmother with coronary artery disease as well. He no longer has pain in his left neck tells me he has occasional pains in his epigastric area right now, improved with PPI and NTG. Problem list: COVID-19 - not requiring any oxygen no significant GI symptoms. Chest pain - likely GERD. Per his report has nonobstructive CAD on cardiac cath and has been seen at [facility] in 2019. Diastolic CHF - BNP 71, not symptomatic High Cholesterol - cont statin Hypertension - cont BP meds FEN - Cardiac diet FULL CODE DIspo - ruled out for acute FL, can return to facility with outpatient f/u with primary church organist. Due to COVID 19 restrictions an outpatient echo and stress test cannot be scheduled until 14 days from his positive test. Discharge Information Condition at Discharge: Improved Follow Up: Weeks Disposition/Orders: D/C to Another Facility Scheduled Acetaminophen (Acetaminophen) 500 Mg Tablet, 500 MG PO BID for pain, (Reported) Entered as Reported by: NATE TEJEDA on 06/22/202309 Last Taken: Unknown Dose on 06/22/20 Last Action: New Order on 06/22/202309 by NATE TEJEDA Amlodipine Besylate (Amlodipine Besylate) 10 Mg Tablet, 10 MG PO DAILY for htn, (Reported) Entered as Reported by: NATE TEJEDA on 06/22/202309 Last Taken: Unknown Dose on 06/22/20 Last Action: Continued on 06/23/20749 by BEVERLY MARIE MD Lisinopril (Lisinopril) 40 Mg Tablet, 1 TAB PO DAILY for htn, #30 Ref 5 (Reported) Entered as Reported by: NATE TEJEDA on 06/22/202309 Last Taken: Unknown Dose on 06/22/20 Last Action: Continued on 06/23/20749 by BEEVRLY MARIE MD Metoprolol Succinate (Toprol XL) 50 Mg Tab.er.24h, 50 MG PO DAILY for FOR HYPERTENSION, (Reported) Entered as Reported by: NATE TEJEDA on 06/22/202309 Last Taken: Unknown Dose on 06/22/20 Last Action: Continued on 06/23/20749 by BEVERLY MARIE MD Nitroglycerin (NITROGLYCERIN SubLingual) 0.4 Mg Tab.subl, 1 TAB SL UD for chest pain, #25 Ref 0 (Reported) 1st sign of attack; may repeat every 5 mins; if pain persists after 3 in 15 min, medical attention is recommended Entered as Reported by: NATE TEJEDA on 06/22/202309 Last Taken: Unknown Dose on 06/22/20 Last Action: Continued on 06/23/20749 by BEVERLY MARIE MD Pantoprazole Sodium (Pantoprazole Sodium ) 40 Mg Tablet.dr, 40 MG PO BID for GERD for 30 Days, #60 Prescribed by: BEVERLY MARIE MD on 06/23/20 1352 Pravastatin Sodium (Pravastatin Sodium) 40 Mg Tablet, 1 TAB PO QHS for cholesterol, #90 Ref 1 (Reported) Entered as Reported by: NATE TEJEDA on 06/22/202309 Last Taken: Unknown Dose on 06/22/20 Last Action: Converted on 06/23/20749 by BEVERLY MARIE MD Spironolactone (Spironolactone) 25 Mg Tablet, 1 TAB PO BID for diuretic, #90 Ref 1 (Reported) Entered as Reported by: NATE TEJEDA on 06/22/202309 Last Taken: Unknown Dose on 06/22/20 Last Action: Continued on 06/23/20749 by BEVERLY MARIE MD Discontinued Medications Naproxen (Naprosyn) 500 Mg Tablet, 1 TAB PO BID for pain for 30 Days, #60 Ref 0 (Reported) Entered as Reported by: NATE TEJEDA on 06/22/202309 Last Taken: Unknown Dose on 06/22/20 Last Action: New Order on 06/22/202309 by NATE TEJEDA Omeprazole (Omeprazole) 40 Mg Capsule.dr, 1 CAP PO DAILY PRN for INDIGESTION, #30 Ref 3 (Reported) Entered as Reported by: NATE TEJEDA on 06/22/202309 Last Taken: Unknown Dose on Unknown Date & Time Last Action: Converted on 06/23/20749 by BEVERLY MARIE MD Justicifation of Admission Dx: Justifications for Admission: Justification of Admission Dx: Yes BEVERLY MARIE MD Jun 23, 2020 13:57
--- NOTE | 2020-06-23 13:58 | SNU/HH DC ---
DISCHARGE ORDERS DISCHARGE INFORMATION: DISCHARGE DATE: Jun 23, 2020 FINAL DIAGNOSIS Problems Medical Problems: (1) Chest pain Status: Acute (2) COVID-19 Status: Acute CONDITION ON DISCHARGE: Stable CODE STATUS: Code Status: Full POST DISCHARGE ORDERS: ACTIVITY ORDERS: No restrictions WEIGHT BEARING STATUS: No restrictions DIET AFTER DISCHARGE: Cardiac CHECKS AFTER DISCHARGE: CHECKS AFTER DISCHARGE: Check blood press - daily, Check your Temp as needed, Weigh Yourself Daily FOLLOW-UP: PHYSICIAN FOLLOW-UP: Dr. Mendoza [facility] DISCHARGE MEDICATIONS: Home Meds Active Scripts Pantoprazole Sodium (PANTOPRAZOLE SODIUM ) 40 Mg Tablet., 40 MG PO BID for GERD for 30 Days, #60 TAB.SR Prov:BEVERLY MARIE MD 06/23/20 Reported Medications Acetaminophen (ACETAMINOPHEN) 500 Mg Tablet, 500 MG PO BID for pain, TAB 06/22/20 Nitroglycerin (NITROGLYCERIN SubLingual) 0.4 Mg Tab.subl, 1 TAB SL UD for chest pain, #25 TAB 0 Refills 1st sign of attack; may repeat every 5 mins; if pain persists after 3 in 15 min, medical attention is recommended 06/22/20 Pravastatin Sodium (PRAVASTATIN SODIUM) 40 Mg Tablet, 1 TAB PO QHS for cholesterol, #90 TAB 1 Refill 06/22/20 Spironolactone (SPIRONOLACTONE) 25 Mg Tablet, 1 TAB PO BID for diuretic, #90 TAB 1 Refill 06/22/20 Metoprolol Succinate (Toprol XL) 50 Mg Tab.er.24h, 50 MG PO DAILY for FOR HYPERTENSION, TAB.SR 06/22/20 Amlodipine Besylate (AMLODIPINE BESYLATE) 10 Mg Tablet, 10 MG PO DAILY for htn, TAB 06/22/20 Lisinopril (LISINOPRIL) 40 Mg Tablet, 1 TAB PO DAILY for htn, #30 TAB 5 Refills 06/22/20 Discontinued Reported Medications Naproxen (NAPROSYN) 500 Mg Tablet, 1 TAB PO BID for pain for 30 Days, #60 TAB 0 Refills 06/22/20 Omeprazole (OMEPRAZOLE) 40 Mg Capsule., 1 CAP PO DAILY PRN for INDIGESTION, #30 CAP 3 Refills 06/22/20 BEVERLY MARIE MD Jun 23, 2020 13:58
[2020-06-23 15:00] VITALS: BP 147/62
--- NOTE | 2020-06-23 17:00 | NUR ---
Discharge Note: REYNALDO WADE [address] [place] [address] Discharge instructions and discharge home medications reviewed with Lew at [facility] and a copy given. All questions have been answered and understanding verbalized. The following instructions and handouts were given: f/u with credit risk review officer after 14 days of isolation for COVID 19. Discontinued lines and drains: Peripheral IV intact. Patient discharged to [facility] with Residential guards via Wheelchair.
[2020-06-23] MEDS ORDERED: ATORVASTATIN CALCIUM 40 MG TABLET. PO SCH (21:00)
[2020-06-24 02:07] LABS: HEMOGLOBIN A1C 5.3 % (4.8-5.6)
--- NOTE | 2020-06-24 08:10 | EKG ---
[facility] [address] [place] [address] Test Date: 2020-06-22 Test Time: 18:33:04 Pat Name: REYNALDO WADE Department: Room: 671 1 Gender: M Lab Specialist: : [id number] Requested By: NIXON MAIER Order Number: [id number] Reading MD: Nishant Chaves Measurements Intervals [place] Rate: 79 P: 49 LA: 160 QRS: 24 QRSD: 104 T: 17 QT: 348 QTc: 400 Interpretive Statements SINUS RHYTHM NORMAL ECG RI6.02 No previous ECG available for comparison Electronically Signed On 06-25-2020 10:50:31 SLIP COVER OPERATOR by Nishant Chaves
--- NOTE | 2020-07-08 10:07 | NUR ---
NaCl started on 06/22 at 18:30--stop time 19:30 on 06/22
== END 2020-06-23 17:00 ==
LOC: ER 18:24 → EEVIPCON 18:24 → 6 SOUTH 20:05
PROVIDERS: ADMIT Internal Medicine; ATTEND Internal Medicine
DX: U07.1 COVID-19 (principal); I11.0 Hypertensive heart disease with heart failure; I50.30 Unspecified diastolic (congestive) heart failure; I25.2 Old myocardial infarction; K21.9 Gastro-esophageal reflux disease without esophagitis; I25.10 Atherosclerotic heart disease of native coronary artery without angina pectoris; E78.00 Pure hypercholesterolemia, unspecified; E78.5 Hyperlipidemia, unspecified; Z95.1 Presence of aortocoronary bypass graft; Z79.82 Long term (current) use of aspirin; Z79.899 Other long term (current) drug therapy
CPT/HCPCS: 36415; 71045; 80053; 81001; 83036; 83690; 83735; 83880; 84484; 85025; 85379; 85610; 85730; 93005; 96361; 96372; 96374; 99285; G0378; J1100; J1650; J7030; G0379